=== PATIENT | female | born 1990 | race Caucasian/White ===

== ENCOUNTER 2016-12-20 12:22 | Emergency (ER) | payer BC, OTHER ==
[~2016-12-20] VITALS: Ht 157.5 cm; Wt 45.0 kg
[~2016-12-20 12:22] MED LIST: CIPR750T10 PO; PROM25SU8 PO; PYRI200T4 PO; TRAM50 PO
[2016-12-20 12:25] VITALS: BP 116/70; PULSE 113; RESP 17; TEMP 98.1; O2SAT 97
[2016-12-20] MEDS ORDERED: KETOROLAC TROMETHAMINE 60 MG/2 ML (IM) VIAL IM ONE (13:00)
[2016-12-20] MEDS ORDERED: ONDANSETRON ODT 4 MG TAB PO ONE (13:00)
[2016-12-20] MEDS ORDERED: MORPHINE SULFATE 8 MG/ML INJ IM ONE (13:00)
--- NOTE | 2016-12-20 13:08 | PD ---
HPI Chief Complaint: Flank/Kidney Pain Time Seen by Provider: 12:46 Travel History International Travel<30 days: No Contact w/Intl Traveler<30days: No Traveled to known affect area: No History of Present Illness HPI 26-year-old female with history of pyelonephritis here with left flank pain. Patient has had now 2 days of left-sided flank pain with dysuria but no hematuria. No fevers or chills. She was seen at [facility] by Dr. Price just prior to arrival. She was given a dose of ciprofloxacin orally and then vomited shortly thereafter. Dr. Price then gave her a dose of IM Rocephin and referred her here. [facility] Past Medical History Ulcer: Yes (STOMACH) ?: Not LMP: 12/09/2016 : 1 Para: 0 Miscarriage: 0 : 1 Ovarian Cysts: Yes Social History Alcohol Use: No Tobacco Use: No Substance Use: No Allergies-Medications (Allergen,Severity, Reaction): Coded Allergies: No Known Allergies (Unverified , 12/20/16) Reported Meds & Prescriptions Reported Meds & Active Scripts Active Ultram (Tramadol HCl) 50 Mg Tab 1-2 Tab PO Q6H PRN FOR PAIN Phenergan (Promethazine HCl) 25 Mg Tab 25 Mg PO Q6H PRN FOR NAUSEA/VOMITING Pyridium (Phenazopyridine HCl) 200 Mg Tab 200 Mg PO TID PRN Ciprofloxacin 750 Mg Tab (Ciprofloxacin) 750 Mg Tab 750 Mg PO BID 7 Days Review of Systems Except as stated in HPI: all other systems reviewed are Neg Physical Exam Narrative GENERAL: Thin female in mild distress SKIN: Focused skin assessment warm/dry. HEAD: Normocephalic. EYES: No scleral icterus. No injection or drainage. ENT: Mucous membranes pink and moist. NECK: Supple CARDIOVASCULAR: Mildly tachycardic, regular. No murmur appreciated. RESPIRATORY: No accessory muscle use. Clear to auscultation. Breath sounds equal bilaterally. GASTROINTESTINAL: Abdomen soft, non-tender, nondistended. Left-sided CVA tenderness MUSCULOSKELETAL: Normal gait. NEUROLOGICAL: Awake and alert. Motor grossly within normal limits. Normal speech. PSYCHIATRIC: Appropriate mood and affect; insight and judgment normal. Data Data Last Documented VS Vital Signs Date Time Temp Pulse Resp B/P Pulse Ox O2 Delivery O2 Flow Rate FiO2 12/20/16 13:43 105 12/20/16 13:36 16 12/20/16 13:20 113/68 100 Room Air 12/20/16 12:25 98.1 Orders Urinalysis - C+S If Indicated (12/20/16 12:47) Ed Urine Pregnancytest Poc (12/20/16 12:47) Ondansetron Odt (Zofran Odt) (12/20/16 13:00) Morphine Inj (Morphine Inj) (12/20/16 13:00) Ketorolac Inj (Toradol Inj) (12/20/16 13:00) Labs Laboratory Tests Test 12/20/16 13:02 Urine Color LIGHT-YELLOW Urine Turbidity CLEAR Urine pH 8.5 Urine Specific [place] 1.006 Urine Protein NEG mg/dL Urine Glucose (UA) NEG mg/dL Urine Ketones NEG mg/dL Urine Occult Blood NEG Urine Nitrite NEG Urine Bilirubin NEG Urine Urobilinogen LESS THAN 2.0 MG/DL Urine Leukocyte Esterase TRACE Urine RBC 1 /hpf Urine WBC 5 /hpf Urine Squamous Epithelial 1 /hpf Cells Microscopic Urinalysis Comment CULT NOT INDICATED MDM Medical Decision Making Medical Screen Exam Complete: Yes Emergency Medical Condition: Yes Medical Record Reviewed: Yes Differential Diagnosis 26-year-old female with history of pyelonephritis here with left flank pain and dysuria. Differential includes last pyelonephritis, ureterolithiasis, musculoskeletal. Narrative Course Patient placed on monitor. Patient was given Rocephin IM prior to arrival. Patient was given morphine, Toradol and Zofran here. Urinalysis and urine test showed leukocyte Estrace with 5 white cells but otherwise fairly unremarkable. Patient felt improved and was able to tolerate oral challenge and will be discharged home. Given her history and infectious symptoms, we'll treat with Keflex for home. Diagnosis Primary Impression: Left flank pain Referrals: Primary Care Physician 1 day Additional Instructions: Antibiotics as prescribed. Nausea medications as needed. Follow-up with Dr. Price tomorrow as scheduled. Med/Other Pt SpecificInfo: Prescription(s) given Scripts Ondansetron Odt (Zofran Odt)8 Mg Tab8 Mg SL Q8H PRN (NAUSEA OR VOMITING) #10 TAB Ref 0 Prov:Codi Hines MD 12/20/16 Cephalexin (Keflex)500 Mg [id number] Mg PO Q8H 7 Days Ref 0 Prov:Codi Hines MD 12/20/16 Disposition: 01 DISCHARGE HOME Condition: Stable Codi Hines MD Dec 20, 2016 13:08
[2016-12-20 13:20] VITALS: BP 113/68; PULSE 110; RESP 16; O2SAT 100
[2016-12-20 13:29] LABS: BLOOD, URINE NEG (NEG); GLUCOSE,URINE NEG (NEG); KETONE, URINE NEG (NEG); NITRITE,URINE NEG (NEG); PH, URINE 8.5 (5.0-8.5); SQUAMOUS EPITHELIAL CELL URINE 1 /hpf (0-5); URINE COLOR LIGHT-YELLOW (YELLW/STRAW)
[2016-12-20 13:30] LABS: COMMENT (UR) CULT NOT INDICATED; CULTURE IF INDICATED CULT NOT INDICATED
[2016-12-20 13:36] VITALS: RESP 16
[2016-12-20 13:43] VITALS: PULSE 105
[2016-12-20] MEDS ORDERED: CEPH-460 PO (13:53)
[2016-12-20] MEDS ORDERED: ZOFR8TAB4 SL (13:53)
== END 2016-12-20 14:27 | disposition home or self-care (01) ==
LOC: NEPD 12:22
DX: R10.32 Left lower quadrant pain (principal); R30.0 Dysuria; R00.0 Tachycardia, unspecified
CPT/HCPCS: 81001; 84703; 87086; 96372; 99284; J1885; J2270

== ENCOUNTER 2017-02-05 09:38 | Emergency (ER) | payer OTHER ==
[~2017-02-05] VITALS: Ht 157.5 cm; Wt 41.7 kg
[~2017-02-05 09:38] MED LIST changes: +CEPH-460 PO; +ZOFR8TAB4 SL
[2017-02-05 09:40] VITALS: BP 128/81; PULSE 122; RESP 18; TEMP 97.7; O2SAT 99
[2017-02-05] MEDS ORDERED: SODIUM CHLOR 0.9% 1000 ML INJ 1,000 ML IV ONE (09:57)
[2017-02-05] MEDS ORDERED: SODIUM CHLORIDE 0.9% FLUSH 10 ML FLUSH IVF PRN (10:00)
[2017-02-05] MEDS ORDERED: diphenhydrAMINE HCL 50 MG/ML VIAL IV PUSH ONE (10:00)
[2017-02-05] MEDS ORDERED: PROCHLORPERAZINE INJ 10 MG/2 ML VIAL IV PUSH ONE (10:00)
[2017-02-05 10:20] LABS: BLOOD, URINE NEG (NEG); GLUCOSE,URINE NEG (NEG); KETONE, URINE 40 mg/dL (NEG); NITRITE,URINE NEG (NEG); PH, URINE 7.5 (5.0-8.5)
[2017-02-05 10:23] LABS: METHOD OF COLLECTION CLEAN CATCH; URINE COLOR YELLOW (YELLW/STRAW); WBC, URINE 0-2 /hpf (0-5)
[2017-02-05 10:24] LABS: COMMENT (UR) CULT NOT INDICATED; CULTURE IF INDICATED CULT NOT INDICATED; SQUAMOUS EPITHELIAL CELL URINE > 8 /hpf (0-5)
[2017-02-05] MEDS ORDERED: PANTOPRAZOLE SODIUM 40 MG VIAL IVP ONE (10:30)
--- NOTE | 2017-02-05 10:34 | PD ---
HPI . Abdominal pain Chief Complaint: GI Complaint Time Seen by Provider: 09:55 Travel History International Travel<30 days: No Contact w/Intl Traveler<30days: No Traveled to known affect area: No History of Present Illness HPI Patient presents complaining with upper abdominal pain associated with vomiting last 12 hours. She is also complaining with an acid taste in her mouth. She describes her upper abdominal pain as a burning sensation and rates it as a 9/ 10. Her pain has been unrelieved by vomiting. She has not noted any exacerbating factor. She denies any previous similar history. [facility] Past Medical History Ulcer: Yes (STOMACH) ?: Not LMP: 01/29/2017 : 1 Para: 0 Miscarriage: 0 : 1 Ovarian Cysts: Yes Past Surgical History Surgical History: No Previous Surgery Social History Alcohol Use: No Tobacco Use: No Substance Use: No Allergies-Medications (Allergen,Severity, Reaction): Coded Allergies: No Known Allergies (Unverified , 02/05/17) Reported Meds & Prescriptions Reported Meds & Active Scripts Active No Active Prescriptions or Reported Medications Review of Systems Except as stated in HPI: all other systems reviewed are Neg General / Constitutional: No: Fever, Chills Gastrointestinal: Positive: Nausea, Vomiting, Abdominal Pain, No: Diarrhea Genitourinary: No: Urgency, Frequency, Dysuria Physical Exam Narrative GENERAL: Awake and alert in no acute distress. SKIN: Warm and dry. Erythematous blotches on the upper chest wall. HEAD: Atraumatic. Normocephalic. EYES: Pupils equal and round. Extraocular movements are intact. ENT: No nasal bleeding or discharge. Mucous membranes pink and moist. NECK: Trachea midline. Neck is supple. CARDIOVASCULAR: Rapid rate, regular rhythm. RESPIRATORY: No accessory muscle use. Lungs are clear with good air movement throughout. GASTROINTESTINAL: Abdomen soft. Epigastric tenderness. No guarding or rebound. Right upper quadrant tenderness. Nondistended. MUSCULOSKELETAL: No obvious deformities. No edema. NEUROLOGICAL: Awake and alert. No obvious cranial nerve deficits. Motor grossly within normal limits. Normal speech. PSYCHIATRIC: Appropriate mood and affect; insight and judgment normal. Data Data Last Documented VS Vital Signs Date Time Temp Pulse Resp B/P Pulse Ox O2 Delivery O2 Flow Rate FiO2 02/05/17 09:40 97.7 122 18 128/81 99 Orders Urinalysis - C+S If Indicated (02/05/17 09:57) Iv Access Insert/Monitor (02/05/17 09:57) Sodium Chlor 0.9% 1000 Ml Inj (Ns 1000 M (02/05/17 09:57) Sodium Chloride 0.9% Flush (Ns Flush) (02/05/17 10:00) Ed Urine Pregnancytest Poc (02/05/17 09:57) Prochlorperazine Inj (Compazine Inj) (02/05/17 10:00) Diphenhydramine Inj (Benadryl Inj) (02/05/17 10:00) Complete Blood Count With Diff (02/05/17 10:17) Comprehensive Metabolic Panel (02/05/17 10:17) Lipase (02/05/17 10:17) Pantoprazole Inj (Protonix Inj) (02/05/17 10:30) Labs Laboratory Tests Test 02/05/17 02/05/17 10:00 10:25 Urine Collection Type CLEAN CATCH Urine Color YELLOW Urine Turbidity CLEAR Urine pH 7.5 Urine Specific [place] 1.024 Urine Protein 30 mg/dL Urine Glucose (UA) NEG mg/dL Urine Ketones 40 mg/dL Urine Occult Blood NEG Urine Nitrite NEG Urine Bilirubin NEG Urine Leukocyte Esterase NEG Urine WBC 0-2 /hpf Urine Squamous Epithelial > 8 /hpf Cells Microscopic Urinalysis Comment CULT NOT INDICATED Urine Collection Time 10:00 White Blood Count 15.3 TH/MM3 Red Blood Count 5.26 MIL/MM3 Hemoglobin 14.3 GM/DL Hematocrit 43.0 % Mean Corpuscular Volume 81.8 FL Mean Corpuscular Hemoglobin 27.3 PG Mean Corpuscular Hemoglobin 33.3 % Concent Red Cell Distribution Width 12.9 % Platelet Count 289 TH/MM3 Mean Platelet Volume 8.7 FL Neutrophils (%) (Auto) 93.4 % Lymphocytes (%) (Auto) 1.7 % Monocytes (%) (Auto) 3.7 % Eosinophils (%) (Auto) 0.2 % Basophils (%) (Auto) 1.0 % Neutrophils # (Auto) 14.2 TH/MM3 Lymphocytes # (Auto) 0.3 TH/MM3 Monocytes # (Auto) 0.6 TH/MM3 Eosinophils # (Auto) 0.0 TH/MM3 Basophils # (Auto) 0.2 TH/MM3 CBC Comment DIFF FINAL Differential Comment Sodium Level 143 MEQ/L Potassium Level 3.2 MEQ/L Chloride Level 107 MEQ/L Carbon Dioxide Level 27.4 MEQ/L Anion Gap 9 MEQ/L Blood Urea Nitrogen 17 MG/DL Creatinine 0.82 MG/DL Estimat Glomerular Filtration 84 ML/MIN Rate Random Glucose 109 MG/DL Calcium Level 8.2 MG/DL Total Bilirubin 1.1 MG/DL Aspartate Amino Transf 14 U/L (AST/SGOT) Alanine Aminotransferase 21 U/L (ALT/SGPT) Alkaline Phosphatase 49 U/L Total Protein 7.4 GM/DL Albumin 3.6 GM/DL Lipase 128 U/L [facility] Medical Decision Making Medical Screen Exam Complete: Yes Emergency Medical Condition: Yes Differential Diagnosis Differential diagnosis of abdominal pain includes but is not limited to gastritis, pancreatitis, hepatitis, gastroenteritis, gallbladder disease, constipation, urinary retention, UTI, peptic ulcer disease, diverticulitis or appendicitis Narrative Course Patient presents with upper abdominal pain associated with nausea and vomiting. She will be treated with IV fluids, Compazine/Benadryl and Protonix. CBC & BMP Diagram 02/05/17 10:25 Bilirubin 1.1, AST 14, ALT 21 and alkaline phosphatase 49. Lipase is normal. UA has no sign of infection. test is negative. The patient is feeling much better following treatment. She is now resting comfortably and has had no further emesis. Diagnosis Primary Impression: Epigastric abdominal pain Additional Impression: Vomiting Qualified Code: R11.2 - Non-intractable vomiting with nausea, unspecified vomiting type Patient Instructions: Acute Nausea and Vomiting (DC), Epigastric Pain (ED), General Instructions Med/Other Pt SpecificInfo: Prescription(s) given Scripts Ondansetron Odt (Zofran Odt)4 Mg Tab4 Mg SL Q6HR PRN (Nausea/Vomiting) #30 TAB Ref 0 Prov:Zuleyma Osman MD 02/05/[address] (Nexium)40 Mg Capdr40 Mg PO DAILY #30 CAP Ref 0 Prov:Zuleyma Osman MD 02/05/17 Disposition: 01 DISCHARGE HOME Condition: Stable Zuleyma Osman MD February 05, 2017 10:34
[2017-02-05 10:35] LABS: AUTOMATED NEUTROPHIL # 14.2 TH/MM3 (1.8-7.7); BASOPHIL # 0.2 TH/MM3 (0-0.2); EOSINOPHIL % 0.2 % (0.0-4.0); HEMO FLAGS DIFF FINAL; LYMPH % 1.7 % (9.0-44.0); LYMPHOCYTE # 0.3 TH/MM3 (1.0-4.8); MEAN CELL VOLUME 81.8 FL (80.0-100.0); MEAN CORPUSCULAR HEMOGLOBIN 27.3 PG (27.0-34.0); MEAN CORPUSCULAR HGB CONC 33.3 % (32.0-36.0); MONO % 3.7 % (0.0-8.0); NEUT % 93.4 % (16.0-70.0); PLATELET COUNT 289 TH/MM3 (150-450); RED BLOOD COUNT 5.26 MIL/MM3 (4.00-5.30); RED CELL DISTRIBUTION WIDTH 12.9 % (11.6-17.2); WHITE BLOOD COUNT 15.3 TH/MM3 (4.0-11.0)
[2017-02-05 10:45] LABS: CHLORIDE 107 MEQ/L (98-107); POTASSIUM 3.2 MEQ/L (3.5-5.1); SODIUM (NA) 143 MEQ/L (136-145)
[2017-02-05 10:49] LABS: ANION GAP 9 MEQ/L (5-15); BICARBONATE 27.4 MEQ/L (21.0-32.0); BLOOD UREA NITROGEN 17 MG/DL (7-18)
[2017-02-05 10:52] LABS: ALT (GPT) 21 U/L (10-53); AST (GOT) 14 U/L (15-37); GLOMERULAR FILTRATION RATE 84 ML/MIN (>89)
[2017-02-05 10:53] LABS: TOTAL BILIRUBIN ADULT 1.1 MG/DL (0.2-1.0)
[2017-02-05 10:55] LABS: ALKALINE PHOSPHATASE 49 U/L (45-117)
[2017-02-05] MEDS ORDERED: NEXI40CA PO (11:25)
[2017-02-05] MEDS ORDERED: ZOFR4TAB3 SL (11:25)
[2017-02-05 11:31] VITALS: BP 100/65
== END 2017-02-05 11:38 | disposition home or self-care (01) ==
LOC: PHED 09:38
DX: R10.13 Epigastric pain (principal); R11.2 Nausea with vomiting, unspecified
CPT/HCPCS: 80053; 81001; 83690; 84703; 85025; 96361; 96374; 96375; 99284; C9113; J0780; J1200; J7030